=== PATIENT | male | born 1950 | race Caucasian/White ===

== ENCOUNTER → 2017-02-13 | Outpatient (CLI) | payer MEDICARE, OTHER ==
--- NOTE | 2017-02-14 09:24 | RADIOLOGY REPORT (SQ) ---
EXAM DESCRIPTION: MRI LUMBAR SPINE WITHOUT COMPLETED DATE/TIME: 02/13/2017 4:28 pm REASON FOR STUDY: SPINAL STENOSIS, LUMBAR REGION M48.06 SPINAL STENOSIS, LUMBAR REGION COMPARISON: CT abdomen pelvis 07/21/2015 MRI lumbar spine 11/25/2015 MRI lumbar spine 03/16/2009 TECHNIQUE: Sagittal and Axial imaging includes T1, T2, STIR and gradient echo sequences. Coronal T2/ HASTE imaging. LIMITATIONS: None. FINDINGS: VISUALIZED UPPER ABDOMEN: Small cyst left mid pole kidney. SEGMENTATION: There is transitional anatomy with a small disc space at S1-2, and a very small left ri b at L1 ALIGNMENT: Anatomic. VERTEBRAE: Intact. BONE MARROW: Normal. No marrow replacement or reactive changes. DISC SIGNAL: Decreased T2 weighted intervertebral disc signal throughout the lumbar spine. Disc spac e loss of height at L3-4 and L4-5 POSTERIOR ELEMENTS: Question left degenerative spondylolysis at L4. HARDWARE: None in the spine. CORD AND CONUS: Normal in size and signal intensity. Conus at the mid L1 level. SOFT TISSUES: No aortic aneurysm seen. No bulky retroperitoneal adenopathy or mass. No paraspinal mas s or fluid. T11-12: At the upper edge of the field of view. No central or foraminal stenosis. Mild bilateral f acet hypertrophy. T12-L1: No central or foraminal stenosis. Mild bilateral facet hypertrophy. L1-L2: Mild diffuse posterior disc bulging is present with moderate bilateral facet hypertrophy. Thi s causes borderline central canal narrowing. No right foraminal narrowing. Mild inferior left angela inal narrowing without exiting L1 nerve root impingement. L2-L3: No posterior disc bulging. Mild bilateral facet and ligament hypertrophy. Borderline central canal narrowing. No significant foraminal narrowing. L3-L4: Mild central canal stenosis is present with flattening of the thecal sac into a triangular sha pe. This results from broad diffuse posterior disc bulging and moderate bilateral facet and ligament hypertrophy. This best shown on axial image 18. There is mild bilateral inferior foraminal narrowi ng at L3-4 without exiting L3 nerve root impingement. L4-L5: Broad diffuse posterior disc bulging with a small central annular tear and disc protrusion is present. This finding along with moderate bilateral facet and ligament hypertrophy causes mild centr al canal stenosis best shown on axial image 24. There is flattening of the thecal sac into a triangu lar shape. Moderate bilateral foraminal narrowing is present without exiting L4 nerve root impingeme nt. There is some edema in left L4 inferior pedicle, and a subtle left pars defect at L4. L5-S1: Mild diffuse posterior disc bulging with a small central annular tear and posterior disc bulge , along with mild bilateral facet and ligament hypertrophy causes borderline central canal narrowing best shown on axial T2 image 30. There is moderate right and high-grade left foraminal narrowing. T here is effacement of fat around the exiting left L5 nerve root. SACRUM: Visualized upper sacrum intact. OTHER: No other significant findings. IMPRESSION: High-grade left foraminal narrowing at L5-S1 from asymmetric facet hypertrophy. TECHNICAL DOCUMENTATION: JOB ID: [id number] [employer]- All Rights Reserved
== END ==
LOC: RAD 15:14
PROVIDERS: ATTEND Physician Assistant
DX: M48.06 Spinal stenosis, lumbar region (principal)
CPT/HCPCS: 72148

== ENCOUNTER → 2018-03-25 | Outpatient (CLI) | payer MEDICARE, OTHER ==
--- NOTE | 2018-03-25 15:32 | RADIOLOGY REPORT (SQ) ---
EXAM DESCRIPTION: CT ABD/PELVIS WITH IV ORAL COMPLETED DATE/TIME: 03/25/2018 3:14 pm REASON FOR STUDY: K57.30 DVRTCLOS OF LG INT W/O PERFORATION OR ABSCESS W/O BLEEDING R10.32 LE K57.30 DVRTCLOS OF LG INT W/O PERFORATION OR ABSCESS W/O BLE R10.32 LEFT LOWER QUADRANT PAIN R10.814 LEF T LOWER QUADRANT ABDOMINAL TENDERNESS COMPARISON: 07/21/2015 TECHNIQUE: CT scan of the abdomen and pelvis performed with intravenous and oral contrast using greer anibal scanning technique with dynamic intravenous contrast injection. Images reviewed with lung, soft t issue, and bone windows. Reconstructed coronal and sagittal MPR images reviewed. Delayed images for e valuation of the urinary system also acquired. All images stored on PACS. All CT scanners at this facility use dose modulation, iterative reconstruction, and/or weight based d osing when appropriate to reduce radiation dose to as low as reasonably achievable (ALARA). [facility]: Dose Right [facility]: CareDose [facility]: Dose Right [facility]: Teradose 4D [facility]: [employer] CONTRAST TYPE AND DOSE: contrast/concentration: Isovue 350.00 mg/ml; Total Contrast Delivered: 90.0 ml; Total Saline Delivered: 59.0 ml RENAL FUNCTION: Creatinine 0.7. RADIATION DOSE: CT Rad equipment meets quality standard of care and radiation dose reduction techniq ues were employed. CTDIvol: 7.5 - 8.8 mGy. DLP: 943 mGy-cm. . LIMITATIONS: None. FINDINGS: LOWER CHEST: No significant findings. No nodules or infiltrates. LIVER: Normal size. No masses. No dilated ducts. SPLEEN: Normal size. No focal lesions. PANCREAS: No masses. No significant calcifications. No adjacent inflammation or peripancreatic fluid collections. Pancreatic duct not dilated. GALLBLADDER: No identified stones by CT criteria. No inflammatory changes to suggest cholecystitis. ADRENAL GLANDS: No significant masses or asymmetry. RIGHT KIDNEY AND URETER: No solid masses. No significant calcifications. No hydronephrosis or hyd roureter. LEFT KIDNEY AND URETER: No solid masses. 5 mm stone lower pole. No hydronephrosis or hydroureter. AORTA AND VESSELS: No aneurysm. RETROPERITONEUM: No retroperitoneal adenopathy, hemorrhage or masses. BOWEL AND PERITONEAL CAVITY: Sigmoid diverticulosis. No evidence of diverticulitis. APPENDIX: Normal. PELVIS: No significant masses. Normal bladder. No free fluid. ABDOMINAL WALL: Small fat containing umbilical hernia. BONES: No acute findings. OTHER: No other significant finding. IMPRESSION: 1. Sigmoid diverticulosis. No definitive diverticulitis. 2. Nonobstructing stone left kidney. TECHNICAL DOCUMENTATION: JOB ID: [id number] Quality ID # [id number]: Final reports with documentation of one or more dose reduction techniques (e.g., Au tomated exposure control, adjustment of the mA and/or kV according to patient size, use of iterative reconstruction technique) 2010 [employer]- All Rights Reserved Reading location - IP/workstation name: [email or web address]
== END ==
LOC: RAD 15:07
PROVIDERS: ATTEND Internal Medicine Gastroenterology
DX: K57.30 Diverticulosis of large intestine without perforation or abscess without bleeding (principal); R10.32 Left lower quadrant pain
CPT/HCPCS: 74177; 82565